=== PATIENT | female | born 1975 | race American Indian/Alaskan Native ===

== ENCOUNTER 2019-05-30 09:50 | Day surgery (SDC) | payer MEDICARE ==
[2019-05-30 10:52] LABS: Blood Urea Nitrogen 9 mg/dL (7-17)
[2019-05-30] MEDS ORDERED: NITROGLYCERIN 0.4 MG TAB SUBL SL ONE (11:00)
[2019-05-30] MEDS ORDERED: METOPROLOL TARTRATE 5 MG/5 ML INJ IV ONE ×2 (11:19→12:37)
--- NOTE | 2019-05-30 12:47 | Cat Scan Report ---
LIMITED CTA CHEST Indication: Limited evaluation of the chest associated with cardiac CTA exam. Technique: Arterial phase technique utilized to evaluate the carotid arteries. Please refer to the of ficial cardiac CTA report for contrast details. All CT scans at this location are performed using CT dose reduction for ALARA by means of automated exposure control. Findings: No pathologic adenopathy. Visualized lungs are clear. There are degenerative changes in the spine with no acute osseous abnormality. Limited imaging through the upper abdomen demonstrates mild diffuse fatty infiltration throughout the liver.. Impression: Unremarkable limited CT of the lower chest. Mild hepatic steatosis. Signer Name: Ab Ty Jr, MD Signed: 05/30/2019 12:43 PM Workstation Name: [id number]
[2019-05-30 13:08] VITALS: BP 153/90
--- NOTE | 2019-05-31 15:59 | CT Calcium Scoring Report ---
Coronary Calcium Score Date of service: 05/31/19 Procedure: High-resolution computed tomographic imaging of the chest was performed on05/30/19 with particular attention paid to the coronary arteries. Images from the examination were analyzed for the presence and extent of coronary artery calcification, using coronary calcium quantification software. The patient tolerated the procedure well and there were no complications. The results of the coronary calcification analysis are provided below. The patient scores are compared with published data related to scores for people of a similar age and the same gender. - Findings Total Agatson Score: 0 Findings: cardiac CT angiogram Indication recurrent chest pain Informed consent obtained Procedure: The patient was brought to the cardiac CT angiography laboratory at [facility] in stable condition after a [address] angiography was performed on the 64 slice scanner according to the standard protocol. Heart rate was regulated by beta-blockade. Sublingual n itroglycerin was administered prior to imaging. A coronary artery calcium score via the accurate stint method was performed. Left ventricular function was evaluated by the volumetric segmentation threshold based approach. A separate radiology assessment of the noncardiac structures in the field of view will be provided. the superior and inferior vena cava in the field of view of her normal. The ascending and descending aorta in the field of view appear normal. The pulmonary artery in the field of view appears normal. The pulmonary veins enter the left atrium appropriately The left atrial appendage appears normal The interventricular septum and the interatrial septum appear normal. The left atrium appears enlarged. The right atrium appears normal. The right and left ventricles up here normal. There is no intracardiac mass. There is no pericardial effusion The mitral and aortic valves appear normal. Left ventriculography demonstrates a left ventricular ejection fraction of 50% with normal systolic wall thickening and wall motion. Coronary angiography reveals a right dominant system. The coronary arteries originate properly from their respective coronary cusps. The left main coronary artery is normal. The left anterior coronary artery and the diagonal branches appear normal. The circumflex coronary artery and the obtuse marginal branches appear normal. The right coronary artery appears normal. Imaging was technically supple optimal and limited by motion artifact. However no significant underlying coronary disease was seen. The procedure was well-tolerated. There were no procedural complications.
== END 2019-05-30 12:00 | disposition home or self-care (01) ==
LOC: CATHLABREC 09:50
PROVIDERS: ATTEND Internal Medicine Cardiovascular Disease
DX: R07.89 Other chest pain (principal); M47.899 Other spondylosis, site unspecified; K76.0 Fatty (change of) liver, not elsewhere classified; E78.00 Pure hypercholesterolemia, unspecified; I10 Essential (primary) hypertension; J45.909 Unspecified asthma, uncomplicated; Z88.5 Allergy status to narcotic agent; Z88.0 Allergy status to penicillin; Z79.899 Other long term (current) drug therapy; Z79.4 Long term (current) use of insulin; Z87.891 Personal history of nicotine dependence; Z98.890 Other specified postprocedural states; Z88.8 Allergy status to other drugs, medicaments and biological substances; Z86.73 Personal history of transient ischemic attack (TIA), and cerebral infarction without residual deficits; Z95.1 Presence of aortocoronary bypass graft
CPT/HCPCS: 36415; 75574; 82565; 84520; Q9966

== ENCOUNTER 2020-07-11 04:35 | Emergency (ER) | payer MEDICARE ==
[2020-07-11] MEDS ORDERED: ASPIRIN 325 MG TAB PO ONE (04:42)
[2020-07-11 05:06] LABS: Basophils # (Auto) 0.1 K/mm3 (0.0-0.1); Basophils % (Auto) 0.7 % (0.0-1.8); Eosinophils # (Auto) 0.2 K/mm3 (0.0-0.4); Eosinophils % (Auto) 1.8 % (0.0-4.3); Hematocrit 40.2 % (30.3-42.9); Hemoglobin 13.6 gm/dl (10.1-14.3); Lymphocytes # (Auto) 4.4 K/mm3 (1.2-5.4); Lymphocytes % (Auto) 46.1 % (13.4-35.0); Mean Corpuscular HGB Conc 34 % (30-34); Mean Corpuscular Volume 90 fl (79-97); Monocytes # (Auto) 0.6 K/mm3 (0.0-0.8); Monocytes % (Auto) 6.5 % (0.0-7.3); Platelet Count 343 K/mm3 (140-440); Red Blood Count 4.48 M/mm3 (3.65-5.03); Red Cell Distribution Width 14.8 % (13.2-15.2)
[2020-07-11 05:29] LABS: BUN/Creatinine Ratio 8; Blood Urea Nitrogen 10 mg/dL (7-17); Calcium 10.4 mg/dL (8.4-10.2); Hemolysis Index 9
--- NOTE | 2020-07-11 06:21 | XRay Report ---
CHEST 1 VIEW INDICATION / CLINICAL INFORMATION: Chest Pain. COMPARISON: None available. FINDINGS: SUPPORT DEVICES: None. HEART / MEDIASTINUM: No significant abnormality. LUNGS / PLEURA: No significant pulmonary or pleural abnormality. No pneumothorax. ADDITIONAL FINDINGS: No significant additional findings. IMPRESSION: 1. No acute findings. Signer Name: Jeanette Vernon MD Signed: 07/11/2020 6:17 AM Workstation Name: [id number]
--- NOTE | 2020-07-11 07:01 | Emergency Department Report ---
ED Chest Pain HPI - General Chief Complaint: Chest Pain Stated Complaint: CHEST PAIN/HEADACHE/DIZZINESS/SOB Time Seen by Provider: 07/11/20 06:13 Source: patient Mode of arrival: Ambulatory Limitations: No Limitations - History of Present Illness Initial Comments: 45-year-old female with history of MS, seizure disorder, hypertension, bradycardia, presents to the ED with chest pain x4 days. Patient states pain is substernal, radiating underneath the left breast and around to the back. Pain has been intermittent. She describes it as sharp. She reports some associated shortness of breath. She denies any nausea, vomiting, cough, fever. She also reports her blood pressure has been elevated and she has been experiencing headache as well. She reports she has been compliant with her amlodipine, metoprolol, and clonidine. Has not taken her morning doses. Local Telephone Operator: Dr Keke COHEN Complaint: chest pain -: days(s) (4) Onset: during rest Pain Location: substernal Pain Radiation: other Severity: moderate Severity scale (0 -10): 8 Quality: sharp Consistency: intermittent Improves With: nothing Worsens With: supine re: dyspnea. denies: nausea, vomting, diaphoresis Other Symptoms: denies: cough, fever, leg swelling - Related Data Home Medications Medication Instructions Recorded Confirmed Last Taken Cholecalciferol (Vitamin D3) 1 tab PO QWEEK 05/30/19 05/30/19 05/29/19 [Vitamin D3 50,000UNIT CAP] 1 CAP Diclofenac Sodium 75 mg PO BID 05/30/19 05/30/19 05/29/19 75 MG Gabapentin [Neurontin 250 mg/5 ml] 10 ml PO TID 05/30/19 05/30/19 05/29/19 10 ML Insulin Detemir (Nf) [Levemir 15 units SQ BID 05/30/19 05/30/19 05/29/19 Flextouch (Nf)] 15 UNITS Metoprolol [Lopressor TAB] 50 mg PO BID 05/30/19 05/30/19 05/29/19 50 MG amLODIPine 5 mg PO DAILY 05/30/19 05/30/19 05/29/19 5 mg lamoTRIgine [LaMICtal] 200 mg PO BID 05/30/19 05/30/19 05/29/19 200 mg levETIRAcetam [Keppra TAB] 3 tab PO TID 05/30/19 05/30/19 05/29/19 3 TABS predniSONE 10 mg PO DAILY 05/30/19 05/30/19 05/29/19 10 MG valACYclovir [Valtrex] 500 mg PO BID 05/30/19 05/30/19 05/29/19 500 MG Allergies Allergy/AdvReac Type Severity Reaction Status Date / Time acetaminophen [From Percocet] Allergy Anaphylaxis Unverified 05/30/19 09:55 doxycycline Allergy Hives Unverified 05/30/19 09:55 morphine Allergy Nausea Unverified 05/30/19 09:55 mushroom Allergy Swelling Unverified 05/30/19 09:55 OF THE FACE AND LIPS NSAIDS (Non-Steroidal Allergy UNABLE TO Unverified 05/30/19 09:55 Anti-Inflamma BREATH AND SWALLOW oxycodone [From Percocet] Allergy Anaphylaxis Unverified 05/30/19 09:55 Penicillins Allergy Hives Unverified 05/30/19 09:55 red dye Allergy Swelling Unverified 05/30/19 09:55 OF THE FACE Heart Score - HEART Score History: Slightly suspicious EKG: Non-specific Age: 45-65 Risk factors: 1-2 risk factors Troponin: < normal limit HEART Score: 3 ED Review of Systems ROS: Stated complaint: CHEST PAIN/HEADACHE/DIZZINESS/SOB Other details as noted in HPI Comment: All other systems reviewed and negative Constitutional: denies: chills, fever Respiratory: shortness of breath. denies: cough Cardiovascular: chest pain Gastrointestinal: denies: nausea, vomiting Neurological: headache ED Past Medical Hx - Past Medical History Previous Medical History?: Yes Hx Hypertension: Yes Hx Heart Attack/AMI: No Hx Diabetes: Yes Hx Renal Disease: Yes Hx Seizures: Yes Hx Asthma: Yes Hx COPD: No Additional medical history: Multiple Sclerosis. Heart Murmur - Surgical History Past Surgical History?: Yes Hx Coronary Stent: No Hx Pacemaker: No Hx Cholecystectomy: Yes Hx Appendectomy: Yes Additional Surgical History: Tonsillectomy. - Social History Smoking Status: Never Smoker Substance Use Type: None - Medications Home Medications: Home Medications Medication Instructions Recorded Confirmed Last Taken Type Cholecalciferol (Vitamin D3) 1 tab PO QWEEK 05/30/19 05/30/19 05/29/19 History [Vitamin D3 50,000UNIT CAP] 1 CAP Diclofenac Sodium 75 mg PO BID 05/30/19 05/30/19 05/29/19 History 75 MG Gabapentin [Neurontin 250 mg/5 ml] 10 ml PO TID 05/30/19 05/30/19 05/29/19 History 10 ML Insulin Detemir (Nf) [Levemir 15 units SQ BID 05/30/19 05/30/19 05/29/19 History Flextouch (Nf)] 15 UNITS Metoprolol [Lopressor TAB] 50 mg PO BID 05/30/19 05/30/19 05/29/19 History 50 MG amLODIPine 5 mg PO DAILY 05/30/19 05/30/19 05/29/19 History 5 mg lamoTRIgine [LaMICtal] 200 mg PO BID 05/30/19 05/30/19 05/29/19 History 200 mg levETIRAcetam [Keppra TAB] 3 tab PO TID 05/30/19 05/30/19 05/29/19 History 3 TABS predniSONE 10 mg PO DAILY 05/30/19 05/30/19 05/29/19 History 10 MG valACYclovir [Valtrex] 500 mg PO BID 05/30/19 05/30/19 05/29/19 History 500 MG ED Physical Exam - General Limitations: No Limitations General appearance: alert, in no apparent distress - Head Head exam: Present: atraumatic, normocephalic - Eye Eye exam: Present: normal appearance, EOMI - ENT ENT exam: Present: mucous membranes moist - Neck Neck exam: Present: normal inspection - Respiratory Respiratory exam: Present: normal lung sounds bilaterally, chest wall tenderness (left anterior chest). Absent: respiratory distress - Cardiovascular Cardiovascular Exam: Present: regular rate, normal rhythm - GI/Abdominal GI/Abdominal exam: Present: soft. Absent: distended, tenderness - Extremities Exam Extremities exam: Present: normal inspection. Absent: pedal edema, calf tend erness - Neurological Exam Neurological exam: Present: alert, oriented X3 - Psychiatric Psychiatric exam: Present: normal affect, normal mood - Skin Skin exam: Present: warm, dry, intact, normal color ED Course Vital Signs 07/11/20 07/11/20 07/11/20 05:53 05:56 09:23 Pulse Rate 57 L 59 L Respiratory 16 16 Rate Blood Pressure 210/89 Blood Pressure 215/87 [Left] O2 Sat by Pulse 99 99 Oximetry 07/11/20 07/11/20 09:41 11:32 Pulse Rate 55 L 56 L Respiratory 16 Rate Blood Pressure 191/86 Blood Pressure 159/64 [Left] O2 Sat by Pulse 99 Oximetry ED Medical Decision Making - Lab Data Result diagrams: 07/11/20 04:44 07/11/20 04:44 - EKG Data -: EKG Interpreted by Nm EKG shows normal: sinus rhythm, axis, intervals, QRS complexes Rate: bradycardia (rate 51) - EKG Data Interpretation: other (lateral T wave inversions(I, aVL)) - Radiology Data Radiology results: report reviewed, image reviewed - Medical Decision Making 45-year-old female presents to ED with chest pain. EKG shows some lateral T wave inversions. Troponin is negative x2. CTA chest is negative for PE. Patient seen and evaluated by Dr. Crum. Kiet for discharge if blood pressure under control. Can follow-up as outpatient for chest pain work-up. Patient given clonidine and also Dilaudid for her pain. Blood pressure improved. There is a CT finding of a thoracic spinal lesion. Patient reports she has been told of this in the past and has seen a physician by the name of Dr. Tan for it. Patient does not know what this physician's specialty is. Patient will be given follow-up and follow for our spine and oncology physicians. Return precautions given. - Differential Diagnosis ACS, chest wall pain, PE Critical care attestation.: If time is entered above; I have spent that time in minutes in the direct care of this critically ill patient, excluding procedure time. ED Disposition Clinical Impression: Chest pain, Uncontrolled hypertension, Lesion of bone of thoracic spine Disposition: - TO HOME OR SELFCARE Is pt being admited?: No Condition: Stable Instructions: Nonspecific Chest Pain, Adult, Chest Pain (ED), Hypertension (ED) Referrals: [facility] [Provider Group] - 3-5 Days DISHA BIRD MD [Staff Physician] - 3-5 Days PRIMARY MD KALPESH [Referring] - 3-5 Days DIONNA BENSON MD [Primary Care Provider] - 3-5 Days ANOOP SOL MD [Staff Physician] - 3-5 Days Time of Disposition: 11:43
[2020-07-11] MEDS ORDERED: NITROGLYCERIN 0.4 MG TAB SUBL SL PRN (07:03)
[2020-07-11 07:52] LABS: INR 0.82 (0.87-1.13)
[2020-07-11 07:53] LABS: Partial Thromboplastin Time 30.2 Sec. (24.2-36.6)
--- NOTE | 2020-07-11 09:24 | Cat Scan Report ---
CTA CHEST WITH CONTRAST INDICATION / CLINICAL INFORMATION: chest pain. TECHNIQUE: Axial CT images were obtained through the chest after injection of IV contrast. 3 plane MIP and/or 3D reconstructions were produced. All CT scans at this location are performed using CT dose reduction f or ALARA by means of automated exposure control. COMPARISON: No prior CTA chest. Chest radiograph dated 07/11/2020. FINDINGS: PULMONARY ARTERIES: No pulmonary emboli. THORACIC AORTA: No significant abnormality. HEART: No significant abnormality. CORONARY ARTERIES: No significant calcification. MEDIASTINUM / TIFFANY: No significant abnormality. PLEURA: No pleural effusion. No pneumothorax. LUNGS: No acute air space or interstitial disease. ADDITIONAL FINDINGS: None. UPPER ABDOMEN: No acute findings. SKELETAL STRUCTURES: There is a 2.4 x 1.7 x 4.2 cm expansile lesion centered at the left transverse p rocess of the T5 vertebral level demonstrating internal mineralization and extension into the paraspi nal musculature. There is no involvement of the spinal canal. IMPRESSION: 1. No CT evidence for pulmonary embolism. 2. Expansile osseous lesion centered at the left T5 transverse process measuring 2.4 x 1.7 x 4.2 cm w hich demonstrates internal mineralization and extension into the paraspinal musculature. Osteoblastom a leads the differential. Aneurysmal bone cyst is considered less likely given the lack of cystic com ponent. There is no involvement of the spinal canal. Signer Name: Jax Renee MD Signed: 07/11/2020 9:20 AM Workstation Name: [id number]
[2020-07-11] MEDS ORDERED: cloNIDine 0.2 MG TAB PO ONE (09:29)
[2020-07-11] MEDS ORDERED: HYDROmorphone 1 MG/1 ML INJ IV ONE (10:29)
[2020-07-11 11:32] VITALS: BP 159/64
--- NOTE | 2020-07-11 11:57 | Consultation ---
History of Present Illness Consult date: 07/11/20 Requesting physician: ARLYN RIDLEY Consult reason: chest pain History of present illness: The pt is a 45-year-old female with a past medical history of MS, seizure disorder, HTN, DM. She is followed in our office by Dr. Davies. She presented with c/o chest pain for 4 days prior to arrival and elevated BPs with headache. The pt describes her pain as an intermittent midsternal stabbing pain which is aggravated by deep inspiration. She also c/o some SOB. Pt denies any palpitations, n/v, diaphoresis, dizziness or syncope. She reports she has been compliant with her amlodipine, metoprolol, and clonidine. Has not taken her morning doses. Admission BP 215/87. tte done 01/2018 showed EF 55%, mild LVH, grade 2 diastolic dysfunction, LA mod enlarged, mild MR and TR, mild to mod AR. lexiscan MPI stress test done 01/2018 was negative. Past History Past Medical History: diabetes, hypertension, seizures, other (MS) Medications and Allergies Allergies Allergy/AdvReac Type Severity Reaction Status Date / Time acetaminophen [From Percocet] Allergy Anaphylaxis Unverified 05/30/19 09:55 doxycycline Allergy Hives Unverified 05/30/19 09:55 morphine Allergy Nausea Unverified 05/30/19 09:55 mushroom Allergy Swelling Unverified 05/30/19 09:55 OF THE FACE AND LIPS NSAIDS (Non-Steroidal Allergy UNABLE TO Unverified 05/30/19 09:55 Anti-Inflamma BREATH AND SWALLOW oxycodone [From Percocet] Allergy Anaphylaxis Unverified 05/30/19 09:55 Penicillins Allergy Hives Unverified 05/30/19 09:55 red dye Allergy Swelling Unverified 05/30/19 09:55 OF THE FACE Home Medications Medication Instructions Recorded Confirmed Last Taken Type Cholecalciferol (Vitamin D3) 1 tab PO QWEEK 05/30/19 05/30/19 05/29/19 History [Vitamin D3 50,000UNIT CAP] 1 CAP Diclofenac Sodium 75 mg PO BID 05/30/19 05/30/19 05/29/19 History 75 MG Gabapentin [Neurontin 250 mg/5 ml] 10 ml PO TID 05/30/19 05/30/19 05/29/19 History 10 ML Insulin Detemir (Nf) [Levemir 15 units SQ BID 05/30/19 05/30/19 05/29/19 History Flextouch (Nf)] 15 UNITS Metoprolol [Lopressor TAB] 50 mg PO BID 05/30/19 05/30/19 05/29/19 History 50 MG amLODIPine 5 mg PO DAILY 05/30/19 05/30/19 05/29/19 History 5 mg lamoTRIgine [LaMICtal] 200 mg PO BID 05/30/19 05/30/19 05/29/19 History 200 mg levETIRAcetam [Keppra TAB] 3 tab PO TID 05/30/19 05/30/19 05/29/19 History 3 TABS predniSONE 10 mg PO DAILY 05/30/19 05/30/19 05/29/19 History 10 MG valACYclovir [Valtrex] 500 mg PO BID 05/30/19 05/30/19 05/29/19 History 500 MG Active Meds: Active Medications Nitroglycerin (Nitroglycerin 0.4 Mg Tab Subl) 0.4 mg SL .Q5MIN PRN PRN Reason: Chest Pain Last Admin: 07/11/20 09:23 Dose: 0.4 mg Documented by: Review of Systems Constitutional: no weight loss, no weight gain, no fever, no chills, no sweats Ears, nose, mouth and throat: no ear pain, no nose pain, no sinus pressure, no sinus pain Cardiovascular: chest pain, shortness of breath, high blood pressure, no orthopnea, no palpitations, no rapid/irregular heart beat, no edema, no syncope, no lightheadedness, no leg edema Respiratory: shortness of breath, pain on inspiration, no cough, no congestion, no wheezing Gastrointestinal: no abdominal pain, no nausea, no vomiting, no diarrhea, no con stipation, no change in bowel habits Genitourinary Female: no pelvic pain, no flank pain, no dysuria, no urinary frequency, no urgency Musculoskeletal: no neck stiffness, no neck pain, no shooting arm pain, no arm numbness/tingling, no low back pain, no shooting leg pain Integumentary: no rash, no pruritis, no redness, no sores, no wounds Neurological: headaches Psychiatric: no anxiety Endocrine: no cold intolerance, no heat intolerance Hematologic/Lymphatic: no easy bruising Allergic/Immunologic: no urticaria Physical Examination Vital Signs Resp Pulse Ox 16 99 07/11/20 05:53 07/11/20 05:53 General appearance: no acute distress HEENT: Positive: PERRL, Normocephaly, Mucus Membranes Moist Neck: Positive: neck supple, trachea midline Cardiac: Positive: Reg Rate and Rhythm, S1/S2 Lungs: Positive: Decreased Breath Sounds Neuro: Positive: Grossly Intact Abdomen: Negative: Tender Skin: Negative: Rash Musculoskeletal: No Pain Extremities: Absent: edema Results 07/11/20 04:44 07/11/20 04:44 Coagulation 07/11/20 Range/Units 07:06 PT 11.2 L (12.2-14.9) Sec. INR 0.82 L (0.87-1.13) APTT 30.2 (24.2-36.6) Sec. CBC 07/11/20 Range/Units 04:44 WBC 9.6 (4.5-11.0) K/mm3 RBC 4.48 (3.65-5.03) M/mm3 Hgb 13.6 (10.1-14.3) gm/dl Hct 40.2 (30.3-42.9) % Plt Count 343 (140-440) K/mm3 Lymph # (Auto) 4.4 (1.2-5.4) K/mm3 [place] # (Auto) 0.6 (0.0-0.8) K/mm3 Eos # (Auto) 0.2 (0.0-0.4) K/mm3 Baso # (Auto) 0.1 (0.0-0.1) K/mm3 Comprehensive Metabolic Panel 07/11/20 Range/Units 04:44 Sodium 144 (137-145) mmol/L Potassium 4.4 (3.6-5.0) mmol/L Chloride 104.4 (98-107) mmol/L Carbon Dioxide 26 (22-30) mmol/L BUN 10 (7-17) mg/dL Creatinine 1.2 (0.6-1.2) mg/dL Glucose 92 (65-100) mg/dL Calcium 10.4 H (8.4-10.2) mg/dL - Imaging and Cardiology Echo: report reviewed (01/2018 showed EF 55%, mild LVH, grade 2 diastolic dysfunction, LA mod enlarged, mild MR and TR, mild to mod AR. ) EKG: report reviewed, image reviewed EKG interpretations - Telemetry EKG Rhythm: Sinus Rhythm - EKG Sinus rhythms and dysrhythmias: sinus rhythm Assessment and Plan AMI r/o. ECG unchanged from priors. Pt's chest pain appears pleuritic in origin. Recommend trial of NSAIDS. No indication for any additional inpatient cardiac evaluation at this time. Pending BPs are optimized, pt may discharge from cardiology perspective, although pt may require admission for BP optimization. If admitted, will follow. Follow up in our [place] office with Dr. Davies on 07/17/2020 @ 3:15PM. The patient has been seen in conjunction with Dr. Crum who agrees with the assessment and plan of care. - Patient Problems (1) Uncontrolled hypertension Current Visit: Yes Status: Acute (2) Chest pain Current Visit: Yes Status: Acute (3) Lesion of bone of thoracic spine Current Visit: Yes Status: Chronic (4) Multiple sclerosis Current Visit: Yes Status: Chronic (5) Diabetes Current Visit: Yes Status: Chronic (6) History of seizures Current Visit: Yes Status: Chronic
== END 2020-07-11 12:00 | disposition home or self-care (01) ==
LOC: ED 04:35
DX: R07.89 Other chest pain (principal); M89.9 Disorder of bone, unspecified; I10 Essential (primary) hypertension; E11.9 Type 2 diabetes mellitus without complications; R56.9 Unspecified convulsions; J45.909 Unspecified asthma, uncomplicated; Z90.89 Acquired absence of other organs; Z98.890 Other specified postprocedural states; Z79.899 Other long term (current) drug therapy; Z88.8 Allergy status to other drugs, medicaments and biological substances
CPT/HCPCS: 36415; 71045; 71275; 80048; 84484; 85025; 85379; 85610; 85730; 93005; 96374; 99284; J1170; Q9967